=== PATIENT | female | born 1985 | race Caucasian/White ===

== ENCOUNTER 2023-03-14 11:39 | Emergency (ER) | payer MEDICAID ==
[~2023-03-14] VITALS: Ht 162.6 cm; Wt 115.7 kg
[2023-03-14] MEDS ORDERED: dexamethasone sod phosphate 10mg/ml inj IM STA (12:22)
[2023-03-14 14:40] LABS: BILIRUBIN,URINE SMALL (Neg); CLARITY,URINE CLOUDY (Clear); COLOR,URINE YELLOW (Yellow); GLUCOSE, URINE NEGATIVE (Neg); KETONES,URINE TRACE mg/dl (Neg); LEUKOCYTE ESTERASE ,URINE NEGATIVE (Neg); NITRITES, URINE NEGATIVE (Neg); OCCULT BLOOD,URINE LARGE (Neg); PH,URINE 6.5 (4.8-8.0); PROTEIN,URINE 100 mg/dl (Neg)
[2023-03-14 14:50] LABS: UA COLLECTION TYPE CLN CATCH MIDSTREAM
[2023-03-14 14:53] LABS: SQUAMOUS EPITHELIAL CELL,UR MANY /LPF (FEW)
[2023-03-14 14:54] LABS: MUCUS STRANDS MANY /LPF (Neg); RBC,URINE 50-100 /HPF (0-2)
[2023-03-14 14:57] LABS: TRANSITIONAL EPI CELLS,URINE FEW /HPF
[2023-03-14 15:02] LABS: BACTERIA,URINE 2+ /HPF (Neg)
[2023-03-14 15:55] VITALS: BP 125/78; PULSE 52; RESP 18; TEMP 98.2; O2SAT 95
== END 2023-03-14 15:57 | disposition home or self-care (01) ==
LOC: ER 11:40
DX: M54.50 Low back pain, unspecified (principal); R33.9 Retention of urine, unspecified; Z98.890 Other specified postprocedural states; Z88.5 Allergy status to narcotic agent; Z79.899 Other long term (current) drug therapy
CPT/HCPCS: 72100; 72148; 81001; 96372; 99285; J1100